=== PATIENT | female | born 2000 | race Caucasian/White ===

== ENCOUNTER 2024-11-17 14:01 | Emergency (ER) | payer OTHER ==
[~2024-11-17] VITALS: Ht 165.1 cm; Wt 83.4 kg
[2024-11-17 15:10] LABS: BASO % 0.2 % (0.0-1.0); EOS # 0.1 10^3/uL (0.0-0.5); EOS % 0.5 % (0.0-3.0); HEMATOCRIT 42.9 % (36.0-47.0); HEMOGLOBIN 13.6 g/dl (12.0-15.5); LYMPH # 1.5 10^3/uL (1.5-5.0); LYMPH % 12.2 % (24.0-44.0); MEAN CORPUSCULAR HEMOGLOBIN 26.1 pg (27.0-33.0); MEAN CORPUSCULAR HGB CONC 31.7 g/dl (32.0-36.5); MEAN CORPUSCULAR VOLUME 82.2 fl (80.0-96.0); MONO # 0.6 10^3/uL (0.0-0.8); NEUTROPHILS # 10.1 10^3/uL (1.5-8.5); NEUTROPHILS % 81.9 % (36.0-66.0); PLATELET COUNT, AUTOMATED 298 10^3/uL (150-450); RED BLOOD COUNT 5.22 10^6/uL (4.00-5.40); WHITE BLOOD COUNT 12.3 10^3/uL (4.0-10.0)
[2024-11-17 15:29] LABS: HCG, SERUM QUALITATIVE NEGATIVE (NEGATIVE)
[2024-11-17] MEDS ORDERED: ISOVUE-370 76% 100ML VIAL As Ordered ONE (15:47)
[2024-11-17] MEDS: IBUPROFEN 600MG TAB PO ONE (16:45)
[2024-11-17] MEDS: LIDOCAINE W/EPINEPHRINE 1% 20ML VIAL SC ONE (18:40)
[2024-11-17] MEDS: BACTRIM 160MG/800MG DS TAB PO ONE (19:20)
[2024-11-17 19:43] LABS: KETONE, URINE AUTO RFX TRACE mg/dL (NEGATIVE); LEUKOCYTE ESTERASE UR AUTO RFX NEGATIVE (NEGATIVE); MUCUS, URINE RFX SMALL (NEGATIVE); NITRITE, URINE AUTO RFX NEGATIVE (NEGATIVE)
[2024-11-17 19:46] VITALS: BP 124/71; TEMP 98; O2SAT 97
[2024-11-17] MEDS ORDERED: BACT800T5 PO (19:51)
== END 2024-11-17 19:47 | disposition home or self-care (01) ==
LOC: M ED 14:01
DX: L02.214 Cutaneous abscess of groin (principal); Z79.2 Long term (current) use of antibiotics
CPT/HCPCS: 36415; 56405; 72193; 80047; 81001; 84703; 85025; 87070; 99284; Q9967